=== PATIENT | male | born 1970 | race Caucasian/White ===

== ENCOUNTER 2021-04-12 14:09 | Emergency (ER) | payer OTHER ==
[~2021-04-12] VITALS: Ht 162.6 cm; Wt 112.0 kg
[2021-04-12 14:30] VITALS: BP 130/79
--- NOTE | 2021-04-12 15:19 | NUR ---
50 y/o Male BIB for c/o weakness in both legs, AVILEZ, blurry vision, pain in the back of his head x 3 days. with congestion and a runny nose. Pt states 3/10 pain. PmHx: Denies Allergies: Denies Home meds: Denies
--- NOTE | 2021-04-12 15:24 | NUR ---
DR AGEE AT BEDSIDE EXAMINING PT
[2021-04-12] MEDS ORDERED: DEXAMETHASONE 10 MG/ML VIAL IVP ONE (15:40)
[2021-04-12] MEDS ORDERED: NACL 0.9% 1,000 ML IV ONE (15:40)
[2021-04-12] MEDS ORDERED: KETOROLAC 15 MG/ML VIAL IVP ONE (15:40)
[2021-04-12] MEDS ORDERED: diphenhydrAMINE 50 MG/ML VIAL IVP ONE (15:40)
[2021-04-12] MEDS ORDERED: METOCLOPRAMIDE 10 MG/2 ML INJ VIAL IVP ONE (15:40)
[2021-04-12 16:20] LABS: HEMOGLOBIN 12.5 g/dL (12.0-18.0); RED CELL DISTRIBUTION WIDTH 14.1 % (11.6-13.7); WHITE BLOOD COUNT (AUTO) 7.7 K/uL (4.8-10.8)
[2021-04-12 16:26] LABS: BASOPHILS % (AUTO) 0.2 % (0.0-2.0); EOSINOPHILS # (AUTO) 0.2 K/uL (0-0.4); EOSINOPHILS % (AUTO) 2.2 % (0.0-4.0); HEMATOCRIT 36.6 % (36-52); LYMPHOCYTES # (AUTO) 1.3 K/uL (2.0-11.5); LYMPHOCYTES % (AUTO) 17.2 % (20.5-51.1); MEAN CORPUSCULAR HEMOGLOBIN 30 pg (27-31); MEAN CORPUSCULAR HGB CONC 34 g/dL (33-37); MEAN CORPUSCULAR VOLUME 87.2 fL (80-94); MONOCYTES # (AUTO) 0.5 K/uL (0.8-1.0); MONOCYTES % (AUTO) 6.2 % (1.7-9.3); NEUTROPHILS # (AUTO) 5.7 K/uL (1.8-7.7); NEUTROPHILS % (AUTO) 74.2 % (42.2-75.2); PLATELET COUNT (AUTO) 266 K/uL (140-450); RED BLOOD CELL COUNT(AUTO) 4.19 MIL/uL (4.20-6.10)
[2021-04-12 16:34] LABS: ALBUMIN 4.1 g/dL (3.4-5.0); ANION GAP 13.5 (8-16); CARBON DIOXIDE 28.5 mmol/L (21-32); CREATININE 1.2 mg/dL (0.6-1.3); TOTAL BILIRUBIN 0.4 mg/dL (0.0-1.0)
[2021-04-12] MEDS ORDERED: ACET-9500 PO (17:05)
[2021-04-12 17:22] VITALS: BP 130/79
--- NOTE | 2021-04-12 17:22 | NUR ---
Patient discharged with v/s stable. Written and verbal after care instructions given and explained. Patient alert, oriented and verbalized understanding of instructions. Ambulatory with steady gait. All questions addressed prior to discharge. ID band removed. Patient advised to follow up with PMD. Rx of EXCEDRIN given. Patient educated on indication of medication including possible reaction and side effects. Opportunity to ask questions provided and answered.
== END 2021-04-12 17:22 | disposition home or self-care (01) ==
LOC: MED 14:09
DX: G43.909 Migraine, unspecified, not intractable, without status migrainosus (principal); Z79.899 Other long term (current) drug therapy
CPT/HCPCS: 36415; 80053; 85025; 85651; 86140; 96361; 96374; 96375; 99284; J1100; J1200; J1885; J2765; J7030

== ENCOUNTER 2021-11-09 17:09 | Emergency (ER) | payer OTHER ==
[~2021-11-09] VITALS: Ht 152.4 cm; Wt 110.7 kg
[~2021-11-09 17:09] MED LIST: ACET-8001 PO
[2021-11-09 17:18] VITALS: BP 109/62
[2021-11-09] MEDS ORDERED: ONDANSETRON 4 MG ODT PO ONE (17:25)
[2021-11-09] MEDS ORDERED: ACETAMINOPHEN EXTRA STRENGTH 500 MG TAB PO ONE (17:25)
--- NOTE | 2021-11-09 17:33 | NUR ---
50/M WALKED IN C/O FEVER, CHILLS, NV AND HEADACHE ONSET 1 DAY. AAO4, DENIES SOB OR CP. VITALS STABLE NKA PMH: DENIES
[2021-11-09] MEDS ORDERED: NACL 0.9% 1,000 ML IV ONE (18:30)
[2021-11-09] MEDS ORDERED: cefTRIAXone 1,000 MG VIAL ONE (18:38)
[2021-11-09 19:35] LABS: BASOPHILS % (AUTO) 0.2 % (0.0-2.0); EOSINOPHILS # (AUTO) 0.1 K/uL (0-0.4); EOSINOPHILS % (AUTO) 0.7 % (0.0-4.0); HEMATOCRIT 33.2 % (36-52); HEMOGLOBIN 11.2 g/dL (12.0-18.0); LYMPHOCYTES # (AUTO) 1.3 K/uL (2.0-11.5); LYMPHOCYTES % (AUTO) 13.4 % (20.5-51.1); MEAN CORPUSCULAR HEMOGLOBIN 30 pg (27-31); MEAN CORPUSCULAR HGB CONC 34 g/dL (33-37); MEAN CORPUSCULAR VOLUME 87.4 fL (80-94); MONOCYTES # (AUTO) 1.2 K/uL (0.8-1.0); MONOCYTES % (AUTO) 12.5 % (1.7-9.3); NEUTROPHILS # (AUTO) 6.8 K/uL (1.8-7.7); NEUTROPHILS % (AUTO) 73.2 % (42.2-75.2); PLATELET COUNT (AUTO) 213 K/uL (140-450); WHITE BLOOD COUNT (AUTO) 9.3 K/uL (4.8-10.8)
[2021-11-09 19:53] LABS: BILIRUBIN,URINE NEGATIVE (NEGATIVE); BLOOD, URINE 2+ (NEGATIVE); COLOR,URINE YELLOW (YELLOW); LEUKOCYTE ESTERASE ,URINE 2+ (NEGATIVE); NITRITE, URINE POSITIVE (NEGATIVE); UGLUCOSE NEGATIVE (NEGATIVE)
[2021-11-09 19:57] LABS: ALBUMIN 3.2 g/dL (3.4-5.0); ANION GAP 13.8 (8-16); CARBON DIOXIDE 27.2 mmol/L (21-32); CREATININE 0.8 mg/dL (0.6-1.3); TOTAL BILIRUBIN 0.7 mg/dL (0.0-1.0)
[2021-11-09 20:18] LABS: APPEARANCE,URINE HAZY (CLEAR)
[2021-11-09 20:23] LABS: RBC,URINE NONE SEEN /HPF (0-5); WBC,URINE TOO MANY TO COUNT /HPF (0-5)
[2021-11-09] MEDS ORDERED: CIPR500T4 PO (22:03)
--- NOTE | 2021-11-09 22:03 | NUR ---
Dr. Gonzalez explained results and treatment plans.
[2021-11-09 22:09] VITALS: BP 116/75
--- NOTE | 2021-11-09 22:09 | NUR ---
Patient discharged with v/s stable. Written and verbal after care instructions given and explained by Dr. Gonzalez. Patient alert, oriented and verbalized understanding of instructions. Ambulatory with steady gait. All questions addressed prior to discharge. ID band removed. Patient advised to follow up with PMD. Rx of Ciprofloxacin given. Patient educated on indication of medication including possible reaction and side effects. Opportunity to ask questions provided and answered.
== END 2021-11-09 22:09 | disposition home or self-care (01) ==
LOC: MED 17:09
DX: N39.0 Urinary tract infection, site not specified (principal)
CPT/HCPCS: 36415; 80053; 81001; 83605; 85025; 87040; 87086; 96365; 99284; J0696; J7030; Q0162

== ENCOUNTER 2021-12-07 02:23 | Emergency (ER) | payer OTHER ==
[~2021-12-07] VITALS: Ht 152.4 cm; Wt 110.7 kg
[~2021-12-07 02:23] MED LIST changes: +CIPR500T4 PO
[2021-12-07 02:30] VITALS: BP 132/60
--- NOTE | 2021-12-07 02:42 | NUR ---
COVID-19, flu swabs collected and sent to lab.
--- NOTE | 2021-12-07 02:45 | NUR ---
PT TAKEN TO BED 2
--- NOTE | 2021-12-07 03:17 | NUR ---
51YR OLD MALE BIB SELF C/O GEN PAIN X2DAYS. PT STATES HAVING A UTI ON THE AND FINISHED ALL ABX. STILL HAVING SOME URINATION PAIN. PT STATES STILL HAVING A FEVER AND BODY MALAISE. DENIES CP OR SOB. RESP EVEN AND UNLABORED. PT IS RESTING IN BED WITH HOB ELEVATED. BED AT LOWEST POSITION. NKDA NO MED HX
[2021-12-07 03:28] LABS: APPEARANCE,URINE CLEAR (CLEAR); BILIRUBIN,URINE NEGATIVE (NEGATIVE); BLOOD, URINE 2+ (NEGATIVE); COLOR,URINE YELLOW (YELLOW); LEUKOCYTE ESTERASE ,URINE 1+ (NEGATIVE); NITRITE, URINE NEGATIVE (NEGATIVE); UGLUCOSE NEGATIVE (NEGATIVE)
[2021-12-07] MEDS ORDERED: KETOROLAC 30 MG/ML VIAL IM ONE (04:05)
[2021-12-07] MEDS ORDERED: cephALEXin 500 MG CAP PO ONE (04:05)
[2021-12-07 04:08] LABS: RBC,URINE 11-20 (MOD) /HPF (0-5)
[2021-12-07] MEDS ORDERED: SULFAMETH/TRIMETH DS 800/160MG 1 TAB PO ONE (04:15)
[2021-12-07] MEDS ORDERED: ACET-10509 PO (04:36)
[2021-12-07] MEDS ORDERED: SULF-59 PO (04:36)
--- NOTE | 2021-12-07 04:45 | NUR ---
Patient discharged with v/s stable. Written and verbal after care instructions given and explained. Patient alert, oriented and verbalized understanding of instructions. Ambulatory with steady gait. All questions addressed prior to discharge. ID band removed. Patient advised to follow up with PMD. Rx of BACTRIM TYLENOL EXTRA given.
== END 2021-12-07 04:45 | disposition home or self-care (01) ==
LOC: MED 02:23
DX: N39.0 Urinary tract infection, site not specified (principal); Z20.822 Contact with and (suspected) exposure to COVID-19
CPT/HCPCS: 81001; 87086; 87426; 87804; 96372; 99283; J1885